=== PATIENT | female | born 2000 | race Caucasian/White ===

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

== ENCOUNTER 2023-02-02 10:37 | Emergency (ER) | payer OTHER, SELFPAY ==
[2023-02-02 10:44] VITALS: BP 108/74; PULSE 90; RESP 16; TEMP 36.6; O2SAT 100
--- NOTE | 2023-02-02 11:03 | ED.SKABFB ---
HPI - Skin/Abscess/Foreign Bdy General Chief complaint: Skin/Abscess/Foreign Body Stated complaint: SWOLLEN AREA TO R BUTTOCK Time Seen by Provider: 02/02/23 11:03 Source: patient, RN notes reviewed and old records reviewed Mode of arrival: ambulatory Limitations: no limitations History of Present Illness HPI narrative: 22 year old female presents to [facility] care with complaints of raised tender tissue to the right of her upper buttock fold for the past 3 days. Patient reports that since yesterday the area has doubled in size and it is tender. Patient reports that area is tender with sitting and also at times is painful when walking.Patient reports she has not noted any drainage from area, is painful to palpation. Patient reports that she has not had previous cyst or abscess on her buttock or near right keshawn cleft. MD complaint: abscess/boil Onset (ago): day(s) (3) Location: buttocks Severity scale (1-10): 5 Treatments prior to arrival: none Related Data Allergies Allergy/AdvReac Type Severity Reaction Status Date / Time No Known Allergies Allergy Verified 02/02/23 11:09 Review of Systems Review of Systems: CONSTITUTIONAL: Denies fever, chills, or sweats. CARDIOVASCULAR: Denies chest pain, palpitations, or edema. RESPIRATORY: Denies cough or dyspnea. GASTROINTESTINAL: Denies abdominal pain, nausea, vomiting SKIN: Reports redness and swelling to right side of upper gluteal fold. Denies purulent drainage, no pustule formation noted , has increased in size since yesterday. MUSCULOSKELETAL: Denies myalgia. NEUROLOGIC: Denies headache, numbness All systems reviewed & are unremarkable except as noted in HPI and below PMFSH Past Medical History Medical History (Updated 02/03/23 @ 00:01 by Sarai Khan) Pyelonephritis Social History Social History (Updated 02/02/23 @ 20:02 by Shruti Corona NP) Smoking status: Never smoker Alcohol intake: unknown Substance use type: does not use Gender identity (if verbalized by the patient): Female Comments At time of signature, agree with nursing past medical, surgical, social and family history. There is no relevant family history pertinent to the presenting complaint Exam Narrative: GENERAL: Well-appearing, well-nourished, and in no acute distress. HEAD: Normocephalic, atraumatic. EYES: PERRLA and EOMI. ENT: Nares clear, no rhinorrhea or epistaxis. Mucous membranes moist. NECK: Supple.no lymphadenopathy CHEST: Clear to auscultation. No respiratory distress. SAO2 100% on room air HEART: Regular rate and rhythm. No murmur heard. Normal peripheral pulses. ABDOMEN: Soft, nontender, nondistended, normal active bowel sounds. EXTREMITIES: Normal range of motion. No edema. SKIN: Warm, dry. Erythema, induration, tenderness, warmth to are of right upper gluteal fold approx 1cm x1cm in size, no fluctuant tissue palpated NEURO: No focal deficits. Alert and oriented x3. Course Course Emergency Course: Patient is aware of diagnosis, understands and agrees to treatment plan. Anticipatory guidance given. Patient agrees to follow-up as directed and is aware of reasons to seek care at the emergency department. Portions of this record may have been created with voice recognition software Level of Care: Express Care Visit Vital Signs Vital signs: Vital Signs Temperature 36.6 C 02/02/23 10:44 Pulse Rate 90 02/02/23 10:44 Respiratory Rate 16 02/02/23 10:44 Blood Pressure 108/74 02/02/23 10:44 Pulse Oximetry 100 02/02/23 10:44 Temperature 36.6 C 02/02/23 10:44 Pulse Rate 90 02/02/23 10:44 Respiratory Rate 16 02/02/23 10:44 Blood Pressure 108/74 02/02/23 10:44 Pulse Oximetry 100 02/02/23 10:44 Reviewed MDM - Skin/Abscess/Foreign Bdy MDM Narrative Medical decision making narrative: Does not appear at this time to be erythema multiforme, bullous, SJS, TEN; no evidence at this time to suggest RMSF, endocarditis or Lyme diseas
== END 2023-02-02 11:21 | disposition home or self-care (01) ==
PROVIDERS: Emergency Provider Registered Nurse
DX: L05.91 Pilonidal cyst without abscess (principal)
CPT/HCPCS: 99213; G0463

== ENCOUNTER 2023-02-06 10:41 | Emergency (ER) | payer OTHER, SELFPAY ==
[2023-02-06 10:46] VITALS: BP 103/65; PULSE 114; RESP 14; TEMP 36.3; O2SAT 99
--- NOTE | 2023-02-06 13:02 | ED.WOUNDLAC ---
HPI - Wound/Laceration General Chief Complaint: Wound/Laceration <DARREN Decker Last Filed: 02/06/23 14:36> Stated Complaint: cyst on buttocks <DARREN Decker Last Filed: 02/06/23 14:36> Time Seen by Provider: 02/06/23 11:29 <DARREN Decker Last Filed: 02/06/23 14:36> Source: patient <DARREN Decker Last Filed: 02/06/23 14:36> Mode of arrival: ambulatory <DARREN Decker Last Filed: 02/06/23 14:36> Limitations: no limitations <DARREN Decker Last Filed: 02/06/23 14:36> History of Present Illness HPI narrative: Patient is a 22-year-old female who presents to the ED with report of painful cyst on her buttocks. Patient reports she first noticed an area of pain to her right buttock, just to the right of her intergluteal cleft last Sunday. Over the weekend, she has developed worsening pain, swelling, redness of the area. She states pain is worse with sitting, having bowel movements. She did take ibuprofen prior to arrival. Denies any abdominal pain, nausea, vomiting, rectal bleeding, fevers. Patient has never had similar symptoms before. <DARREN Decker Last Filed: 02/06/23 14:36> Related Data Allergies/Adverse Reactions: Allergies Allergy/AdvReac Type Severity Reaction Status Date / Time No Known Allergies Allergy Verified 02/02/23 11:09 <DARREN Decker Last Filed: 02/06/23 14:36> Review of Systems Review of Systems: CONSTITUTIONAL: Denies fever, chills, or sweats. CARDIOVASCULAR: Denies chest pain. RESPIRATORY: Denies dyspnea. GASTROINTESTINAL: See HPI. GENITOURINARY: Denies dysuria or hematuria. SKIN: See HPI. MUSCULOSKELETAL: Denies back pain, joint pain, or myalgia. <DARREN Decker Last Filed: 02/06/23 14:36> All systems reviewed & are unremarkable except as noted in HPI and below <Ana Cool PA-C - Last Filed: 02/06/23 14:36> [facility] Past Medical History Medical History: Medical History Pyelonephritis <Aan Cool PA-C - Last Filed: 02/06/23 14:36> Social History Social History: Social History Smoking status: Never smoker Alcohol intake: unknown Substance use type: does not use Gender identity (if verbalized by the patient): Female <Ana Cool PA-C - Last Filed: 02/06/23 14:36> Exam Narrative: GENERAL: Well appearing, obese with BMI of 32.7, non-toxic, in no acute distress. HEAD: Normocephalic, atraumatic. NECK: Supple. No adenopathy, no masses. RESPIRATORY: Airway patent, respirations nonlabored. Clear to auscultation bilaterally, no rales, rhonchi, wheezing. CARDIOVASCULAR: Regular rate and rhythm without murmurs, rubs, or gallops. Radial pulses 2+ and equal bilaterally. ABDOMINAL: Soft, no tenderness throughout abdomen, nondistended, no hepatosplenomegaly. Normoactive BS. RECTAL: Large area of redness, induration, swelling to superior right buttock, just to the right of midline intergluteal cleft, consistent with pilonidal cyst/abscess. Central fluctuance of swelling. Focal tenderness to palpation. No redness, induration, tenderness extending towards perianal region. MUSCULOSKELETAL: Moves all extremities. Strength/ROM intact without gross deformities. SKIN: Warm, dry, normal color. No rashes. NEURO: A&O X3. Speech clear. Cranial nerves II-XII grossly intact. Steady gait. No ataxic movements. PSYCHIATRIC: Mildly anxious. Normal interaction. <Ana Cool PA-C - Last Filed: 02/06/23 14:36> Course CARD CHECKER/PA Physician Supervision I agree with midlevel documentation; exam/history c/w pilonidal abscess. I did perform bedside US confirmed pocket of fluid, I did perform part of I&D procedure, probed with forceps to break loculations to start draining
[2023-02-06] MEDS: SULFAMETHOXAZOLE/TRIMETHOPRIM 800/160 MG DS TABLET 1 TAB PO (13:12)
[2023-02-06] MEDS: LIDOCAINE HCL 1% LOCAL INJ 10 ML VIAL INFILTRATE (13:12)
== END 2023-02-06 13:37 | disposition home or self-care (01) ==
PROVIDERS: Emergency Provider Physician Assistant; PCP Family Medicine
DX: L05.01 Pilonidal cyst with abscess (principal); Z87.440 Personal history of urinary (tract) infections
CPT/HCPCS: 10061; 10080; 87070; 87205; 99283; A9270

== ENCOUNTER 2025-02-03 17:48 | Emergency (ER) | payer OTHER, SELFPAY ==
[2025-02-03] VITALS (7 sets, daily range): BP systolic 106–136; BP diastolic 68–82; PULSE 95–151; RESP 16–20; TEMP 36.6; O2SAT 98–100
--- NOTE | ~2025-02-03 | CT_ITS ---
CT abdomen pelvis w con Ordering provider: Alberto Rose History: 24 years Female with . Lower abdominal pain, syncope . Comparison: None. Technique: CT abdomen and pelvis with IV and without oral contrast. Automated exposure control and it erative reconstruction technique were employed. The dose-length product was 495.26 mGy-cm. Findings: VISUALIZED LOWER CHEST: Normal. UPPER ABDOMINAL ORGANS: Liver: Normal. Gallbladder: Contracted. Spleen: Normal. Stomach/duodenum: Normal. Pancreas: Normal. Adrenals: Normal. Kidneys: Normal. PELVIC ORGANS: The bladder is slightly underfilled with thickened wall. Evaluation for cystitis advis ed. Hyperdense areas seen in the left ovary which may be infection follicle. BOWEL AND MESENTERY: Colon: Mild sigmoid diverticulosis without diverticulitis. Normal appendix. Small Bowel: Normal. No obstruction. Peritoneum/mesentery: No free air. Trace of free fluid is seen in the pelvis.. No mesenteric lymphade nopathy. RETROPERITONEUM: Normal aorta. No retroperitoneal lymphadenopathy. MUSCULOSKELETAL: Superficial soft tissues: The superficial soft tissues are normal. Bones: Normal spine. IMPRESSION: 1. No evidence of appendicitis, diverticulitis or intestinal obstruction. 2. Trace of free fluid in the pelvis. 3. Hyperdense area in the left ovary which may indicate a ruptured ovarian follicle. 4. Slightly thickened wall of the urinary bladder which may indicate cystitis. Clinical correlation advised. Reviewed, dictated and finalized at location A. IMPRESSION: 1. No evidence of appendicitis, diverticulitis or intestinal obstruction. 2. Trace of free fluid in the pelvis. 3. Hyperdense area in the left ovary which may indicate a ruptured ovarian fol licle. 4. Slightly thickened wall of the urinary bladder which may indicate cystitis. Clinical correlation advised.
--- NOTE | ~2025-02-03 | XR_ITS ---
XR chest 1V portable Ordering provider: Alberto Rose MD History: 24 years Female with . dizziness . Comparison: None. FINDINGS: MEDIASTINUM: The cardiac silhouette is not enlarged. LUNGS: No infiltrates, effusions or pneumothorax. OTHER: No free air under the diaphragm. IMPRESSION: No acute cardiopulmonary pathology. Reviewed, dictated and finalized at location A.
--- NOTE | 2025-02-03 18:02 | ECG_ITS ---
Test Date: 2025-02-03 18:17:52 Measurements Intervals [place] Rate: 116 P: 35 AK: 139 QRS: 14 QRSD: 77 T: 7 QT: 293 QTc: 408 Interpretive Statements SINUS TACHYCARDIA NONSPECIFIC T-WAVE ABNORMALITY- ANTEROLAT/INF LEADS BASELINE ARTIFACT- I, II, AVR, AVL, AVF, V1-V6 ABNORMAL ECG No previous ECG available for comparison Electronically Signed On 02-03-2025 20:14:44 CDT by Issa Cross D.O.
[2025-02-03 18:09] LABS: BEDSIDEPREGUCG Negative (Negative)
[2025-02-03 18:10] LABS: Glucose Point of Care 101 mg/dl (65-105)
[2025-02-03] MEDS: SODIUM CHLORIDE 0.9% IV 1,000 ML 999 ML (18:12)
--- NOTE | 2025-02-03 18:16 | ED_ITS ---
HPI - General Adult General Chief complaint: Syncope <Alberto Rose MD - Last Filed: 02/03/25 22:02> Stated complaint: syncope, dizziness <Alberto Rose MD - Last Filed: 02/03/25 22:02> Time Seen by Provider: 02/03/25 17:53 <Alberto Rose MD - Last Filed: 02/03/25 22:02> History of Present Illness HPI narrative: This is a 24-year-old female presenting after an episode of syncope. Patient says that she woke up earlier today and walked out of her room she started to feel lightheaded, her vision got dark sounds seem very far away. She was able to sit down before she briefly lost consciousness. She did not bite her tongue or urinate herself. She then returned to her baseline but when she tried to get up again fainted 1 more time. Patient notes her last several days she has felt fevers. She had temperatures high as 100.6 at home via skin probe today. Patient notes that she has been having pain on urination and suprapubic discomfort. No flank pain. Nausea without vomiting. She has been constipated. Patient denies chest pain difficulty breathing. No lower extremity edema risk factors for DVT/PE. Patient spent all day in the sun over the weekend is is sunburned. <Alberto Rose MD - Last Filed: 02/03/25 22:02> Related Data Allergies/adverse reactions: Allergies Allergy/AdvReac Type Severity Reaction Status Date / Time No Known Allergies Allergy Verified 02/03/25 17:49 <Alberto Rose MD - Last Filed: 02/03/25 22:02> [facility] Past Medical History Medical History: Medical History Pyelonephritis <Alberto Rose MD - Last Filed: 02/03/25 22:02> Social History Social History: Social History Smoking status: Never smoker Alcohol intake: unknown Substance use type: does not use Gender identity (if verbalized by the patient): Female <Alberto Rose MD - Last Filed: 02/03/25 22:02> Exam 2 Narrative: APPEARANCE: No apparent distress. Head: atraumatic. EYES: EOMI, NOSE: Atraumatic NECK: Trachea midline RESPIRATORY: No increased rate of breathing clear to auscultation CARDIOVASCULAR: Tachycardic, orthostatics positive, no peripheral edema ABDOMINAL: Suprapubic discomfort, no CVA tenderness, rest the abdomen is soft without guarding or rebound MUSCULOSKELETAl: No obvious deformities NEURO: Alert. Moving 4/4 extremities SKIN:: Sunburn over the patient's back and shoulders PSYCHIATRIC: Normal affect <Alberto Rose MD - Last Filed: 02/03/25 22:02> Course Vital Signs Vital signs: Vital Signs Temperature 97.8 F 02/03/25 17:56 Pulse Rate 126 H 02/03/25 17:56 Respiratory Rate 18 02/03/25 17:56 Blood Pressure 126/82 02/03/25 17:56 Pulse Oximetry 100 02/03/25 17:56 Oxygen Delivery Room Air 02/03/25 17:56 Temperature 97.8 F 02/03/25 19:45 Pulse Rate 95 02/03/25 20:43 Respiratory Rate 16 02/03/25 20:43 Blood Pressure 120/72 02/03/25 20:43 Pulse Oximetry 98 02/03/25 20:43 Oxygen Delivery Room Air 02/03/25 17:56 <Alberto Rose MD - Last Filed: 02/03/25 22:02> Vital Signs Temperature 97.8 F 02/03/25 17:56 Pulse Rate 126 H 02/03/25 17:56 Respiratory Rate 18 02/03/25 17:56 Blood Pressure 126/82 02/03/25 17:56 Pulse Oximetry 100 02/03/25 17:56 Oxygen Delivery Room Air 02/03/25 17:56 Temperature 97.8 F 02/03/25 19:45 Pulse Rate 95 02/03/25 20:43 Respiratory Rate 16 02/03/25 20:43 Blood Pressure 120/72 02/03/25 20:43 Pulse Oximetry 98 02/03/25 20:43 Oxygen Delivery Room Air 02/03/25 17:56 <Abel Cole MD - Last Filed: 02/03/25 22:09> Medical Decision Making MDM Narrative Medical decision making narrative: -Course: 24-year-old female presenting after a syncopal event. Patient's orthostatic. She has had decreased oral intake and exhaustion from a ruling work schedule. She was given IV fluids with improvement. Patient's workup was significant for a white count 21. The rest her labs within normal limits. Urinalysis did not appear infected. Chest x-ray and EKG were unremarkable. CT abdomen pelvis was added to evaluate for other causes of abdominal pain. Patient has been signed out to the oncoming physician pending completion of her CT scan. <Alberto Rose MD - Last Filed: 02/03/25 22:02> -Course: 24-year-old female presenting after a syncopal event. Patient's orthostatic. She has had decreased oral intake and exhaustion from a ruling work schedule. She was given IV fluids with improvement. Patient's workup was significant for a white count 21. The rest her labs within normal limits. Urinalysis did not appear infected. Chest x-ray and EKG were unremarkable. CT abdomen pelvis was added to evaluate for other causes of abdominal pain. Patient has been signed out to the oncoming physician pending completion of her CT scan. Kelsey: Patient was signed out pending CT abdomen pelvis with IV contrast but it was obtained and blood interpreted by me revealing: IMPRESSION: 1. No evidence of appendicitis, diverticulitis or intestinal obstruction. 2. Trace of free fluid in the pelvis. 3. Hyperdense area in the left ovary which may indicate a ruptured ovarian follicle. 4. Slightly thickened wall of the urinary bladder which may indicate cystitis. Clinical correlation advised. Patient was informed of these findings at bedside. Patient states the feels significantly better. Instructed to follow-up with primary care physician within the next 3-5 days and return to the ED if any new or worsening symptoms develop. She was provided with strict return precautions. Discharged home in <Abel Cole MD - Last Filed: 02/03/25 22:09> Vital Signs Vital Signs: Vital Signs Temperature 97.8 F 02/03/25 17:56 Pulse Rate 126 H 02/03/25 17:56 Respiratory Rate 18 02/03/25 17:56 Blood Pressure 126/82 02/03/25 17:56 Pulse Oximetry 100 02/03/25 17:56 Oxygen Delivery Room Air 02/03/25 17:56 Temperature 97.8 F 02/03/25 19:45 Pulse Rate 95 02/03/25 20:43 Respiratory Rate 16 02/03/25 20:43 Blood Pressure 120/72 02/03/25 20:43 Pulse Oximetry 98 02/03/25 20:43 Oxygen Delivery Room Air 02/03/25 17:56 <Alberto Rose MD - Last Filed: 02/03/25 22:02> Vital Signs Temperature 97.8 F 02/03/25 17:56 Pulse Rate 126 H 02/03/25 17:56 Respiratory Rate 18 02/03/25 17:56 Blood Pressure 126/82 02/03/25 17:56 Pulse Oximetry 100 02/03/25 17:56 Oxygen Delivery Room Air 02/03/25 17:56 Temperature 97.8 F 02/03/25 19:45 Pulse Rate 95 02/03/25 20:43 Respiratory Rate 16 02/03/25 20:43 Blood Pressure 120/72 02/03/25 20:43 Pulse Oximetry 98 02/03/25 20:43 Oxygen Delivery Room Air 02/03/25 17:56 <Abel Cole MD - Last Filed: 02/03/25 22:09> Lab Data Result diagrams: 02/03/25 18:08 02/03/25 18:08 <Alberto Rose MD - Last Filed: 02/03/25 22:02> Labs: Lab Results 02/03/25 02/03/25 02/03/25 Range/Units 18:02 18:07 18:08 WBC 21.0 H (4.5-10.0) K/mm3 RBC 4.34 (4.2-5.4) M/mm3 Hgb 13.6 (12.0-15.0) g/dL Hct 40.5 (37.0-47.0) % MCV 93.3 (80-100) fl MCH 31.3 (26-34) pg MCHC 33.6 (32-36) g/dl RDW 13.0 (11.5-14.5) % Plt Count 298 (150-375) k/mm3 MPV 9.3 (7.4-10.4) fl Immature Gran % (Auto) 0.8 H (0-0.5) % Neut % (Auto) 88.7 H (45.5-73.1) % Lymph % (Auto) 5.5 L (18.3-44.2) % [place] % (Auto) 4.8 (2.6-8.5) % Eos % (Auto) 0.0 (0-4.4) % Baso % (Auto) 0.2 (0.2-1.2) % Lymph # (Auto) 1.16 (0.9-3.2) K/mm3 [place] # (Auto) 1.0 H (0.1-0.6) K/mm3 Eos # (Auto) 0.0 (0-0.3) K/mm3 Baso # (Auto) 0.0 (0.0-0.1) K/mm3 Abs Immat Gran (auto) 0.17 H (0.00-0.031) K/mm3 Absolute Neuts (auto) 18.7 H (1.3-6.7) K/mm3 Absolute Nucleated RBC 0.000 (0.0-0.012) K/mm3 Nucleated RBC % 0.0 (0.0-0.2) % Sodium 135 L (137-145) mmol/L Potassium 4.0 (3.4-5.0) mmol/L Chloride 101 (98-107) mmol/L Carbon Dioxide 24 (22-30) mmol/L Anion Gap 10 (4-12) mmol/L BUN 10 (7-17) mg/dL Creatinine 0.67 L (0.7-1.0) mg/dL Estim Creat Clear Calc 109 ml/min Estimated GFR > 60 (59 - ) Glucose 102 (65-110) mg/dL POC Capillary Glucose 101 (65-105) mg/dl Calcium 9.6 (8.4-10.2) mg/dL Total Bilirubin 0.8 (0.2-1.3) mg/dL AST 28 (14-36) U/L ALT 17 (6-35) U/L Alkaline Phosphatase 60 (38-126) U/L Total Protein 8.4 H (6.3-8.2) g/dL Albumin 4.8 (3.5-5.1) g/dL Urine Color Yellow (Yellow) Urine Appearance Clear (Clear) Urine pH 8.0 (5.0-9.0) Ur Specific [place] 1.017 (1.001-1.035) Urine Protein Negative (Negative) mg/dL Urine Glucose (UA) Negative (Negative) mg/dL Urine Ketones 2+ H (Negative) mg/dL Ur Blood (Man) Negative (Negative) Urine Nitrate Negative (Negative) Urine Bilirubin Negative (Negative) Urine Urobilinogen 1.0 (<2.0) mg/dL Leukocyte Esterase Rfl Negative (Negative) JOSE LUIS/UL POC Urine HCG, Qual Negative (Negative) Influenza A (RT-PCR) (Negative) Influenza B (RT-PCR) (Negative) RSV (RT-PCR) (Negative) SARS-CoV-2 RNA (RT-PCR) (Negative) 02/03/25 Range/Units 19:14 WBC (4.5-10.0) K/mm3 RBC (4.2-5.4) M/mm3 Hgb (12.0-15.0) g/dL Hct (37.0-47.0) % MCV (80-100) fl MCH (26-34) pg MCHC (32-36) g/dl RDW (11.5-14.5) % Plt Count (150-375) k/mm3 MPV (7.4-10.4) fl Immature Gran % (Auto) (0-0.5) % Neut % (Auto) (45.5-73.1) % Lymph % (Auto) (18.3-44.2) % [place] % (Auto) (2.6-8.5) % Eos % (Auto) (0-4.4) % Baso % (Auto) (0.2-1.2) % Lymph # (Auto) (0.9-3.2) K/mm3 [place] # (Auto) (0.1-0.6) K/mm3 Eos # (Auto) (0-0.3) K/mm3 Baso # (Auto) (0.0-0.1) K/mm3 Abs Immat Gran (auto) (0.00-0.031) K/mm3 Absolute Neuts (auto) (1.3-6.7) K/mm3 Absolute Nucleated RBC (0.0-0.012) K/mm3 Nucleated RBC % (0.0-0.2) % Sodium (137-145) mmol/L Potassium (3.4-5.0) mmol/L Chloride (98-107) mmol/L Carbon Dioxide (22-30) mmol/L Anion Gap (4-12) mmol/L BUN (7-17) mg/dL Creatinine (0.7-1.0) mg/dL Estim Creat Clear Calc ml/min Estimated GFR (59 - ) Glucose (65-110) mg/dL POC Capillary Glucose (65-105) mg/dl Calcium (8.4-10.2) mg/dL Total Bilirubin (0.2-1.3) mg/dL AST (14-36) U/L ALT (6-35) U/L Alkaline Phosphatase (38-126) U/L Total Protein (6.3-8.2) g/dL Albumin (3.5-5.1) g/dL Urine Color (Yellow) Urine Appearance (Clear) Urine pH (5.0-9.0) Ur Specific [place] (1.001-1.035) Urine Protein (Negative) mg/dL Urine Glucose (UA) (Negative) mg/dL Urine Ketones (Negative) mg/dL Ur Blood (Man) (Negative) Urine Nitrate (Negative) Urine Bilirubin (Negative) Urine Urobilinogen (<2.0) mg/dL Leukocyte Esterase Rfl (Negative) JOSE LUIS/UL POC Urine HCG, Qual (Negative) Influenza A (RT-PCR) Negative (Negative) Influenza B (RT-PCR) Negative (Negative) RSV (RT-PCR) Negative (Negative) SARS-CoV-2 RNA (RT-PCR) Negative (Negative) <Alberto Rose MD - Last Filed: 02/03/25 22:02> Lab Results 02/03/25 02/03/25 02/03/25 Range/Units 18:02 18:07 18:08 WBC 21.0 H (4.5-10.0) K/mm3 RBC 4.34 (4.2-5.4) M/mm3 Hgb 13.6 (12.0-15.0) g/dL Hct 40.5 (37.0-47.0) % MCV 93.3 (80-100) fl MCH 31.3 (26-34) pg MCHC 33.6 (32-36) g/dl RDW 13.0 (11.5-14.5) % Plt Count 298 (150-375) k/mm3 MPV 9.3 (7.4-10.4) fl Immature Gran % (Auto) 0.8 H (0-0.5) % Neut % (Auto) 88.7 H (45.5-73.1) % Lymph % (Auto) 5.5 L (18.3-44.2) % [place] % (Auto) 4.8 (2.6-8.5) % Eos % (Auto) 0.0 (0-4.4) % Baso % (Auto) 0.2 (0.2-1.2) % Lymph # (Auto) 1.16 (0.9-3.2) K/mm3 [place] # (Auto) 1.0 H (0.1-0.6) K/mm3 Eos # (Auto) 0.0 (0-0.3) K/mm3 Baso # (Auto) 0.0 (0.0-0.1) K/mm3 Abs Immat Gran (auto) 0.17 H (0.00-0.031) K/mm3 Absolute Neuts (auto) 18.7 H (1.3-6.7) K/mm3 Absolute Nucleated RBC 0.000 (0.0-0.012) K/mm3 Nucleated RBC % 0.0 (0.0-0.2) % Sodium 135 L (137-145) mmol/L Potassium 4.0 (3.4-5.0) mmol/L Chloride 101 (98-107) mmol/L Carbon Dioxide 24 (22-30) mmol/L Anion Gap 10 (4-12) mmol/L BUN 10 (7-17) mg/dL Creatinine 0.67 L (0.7-1.0) mg/dL Estim Creat Clear Calc 109 ml/min Estimated GFR > 60 (59 - ) Glucose 102 (65-110) mg/dL POC Capillary Glucose 101 (65-105) mg/dl Calcium 9.6 (8.4-10.2) mg/dL Total Bilirubin 0.8 (0.2-1.3) mg/dL AST 28 (14-36) U/L ALT 17 (6-35) U/L Alkaline Phosphatase 60 (38-126) U/L Total Protein 8.4 H (6.3-8.2) g/dL Albumin 4.8 (3.5-5.1) g/dL Urine Color Yellow (Yellow) Urine Appearance Clear (Clear) Urine pH 8.0 (5.0-9.0) Ur Specific [place] 1.017 (1.001-1.035) Urine Protein Negative (Negative) mg/dL Urine Glucose (UA) Negative (Negative) mg/dL Urine Ketones 2+ H (Negative) mg/dL Ur Blood (Man) Negative (Negative) Urine Nitrate Negative (Negative) Urine Bilirubin Negative (Negative) Urine Urobilinogen 1.0 (<2.0) mg/dL Leukocyte Esterase Rfl Negative (Negative) JOSE LUIS/UL POC Urine HCG, Qual Negative (Negative) Influenza A (RT-PCR) (Negative) Influenza B (RT-PCR) (Negative) RSV (RT-PCR) (Negative) SARS-CoV-2 RNA (RT-PCR) (Negative) 02/03/25 Range/Units 19:14 WBC (4.5-10.0) K/mm3 RBC (4.2-5.4) M/mm3 Hgb (12.0-15.0) g/dL Hct (37.0-47.0) % MCV (80-100) fl MCH (26-34) pg MCHC (32-36) g/dl RDW (11.5-14.5) % Plt Count (150-375) k/mm3 MPV (7.4-10.4) fl Immature Gran % (Auto) (0-0.5) % Neut % (Auto) (45.5-73.1) % Lymph % (Auto) (18.3-44.2) % [place] % (Auto) (2.6-8.5) % Eos % (Auto) (0-4.4) % Baso % (Auto) (0.2-1.2) % Lymph # (Auto) (0.9-3.2) K/mm3 [place] # (Auto) (0.1-0.6) K/mm3 Eos # (Auto) (0-0.3) K/mm3 Baso # (Auto) (0.0-0.1) K/mm3 Abs Immat Gran (auto) (0.00-0.031) K/mm3 Absolute Neuts (auto) (1.3-6.7) K/mm3 Absolute Nucleated RBC (0.0-0.012) K/mm3 Nucleated RBC % (0.0-0.2) % Sodium (137-145) mmol/L Potassium (3.4-5.0) mmol/L Chloride (98-107) mmol/L Carbon Dioxide (22-30) mmol/L Anion Gap (4-12) mmol/L BUN (7-17) mg/dL Creatinine (0.7-1.0) mg/dL Estim Creat Clear Calc ml/min Estimated GFR (59 - ) Glucose (65-110) mg/dL POC Capillary Glucose (65-105) mg/dl Calcium (8.4-10.2) mg/dL Total Bilirubin (0.2-1.3) mg/dL AST (14-36) U/L ALT (6-35) U/L Alkaline Phosphatase (38-126) U/L Total Protein (6.3-8.2) g/dL Albumin (3.5-5.1) g/dL Urine Color (Yellow) Urine Appearance (Clear) Urine pH (5.0-9.0) Ur Specific [place] (1.001-1.035) Urine Protein (Negative) mg/dL Urine Glucose (UA) (Negative) mg/dL Urine Ketones (Negative) mg/dL Ur Blood (Man) (Negative) Urine Nitrate (Negative) Urine Bilirubin (Negative) Urine Urobilinogen (<2.0) mg/dL Leukocyte Esterase Rfl (Negative) JOSE LUIS/UL POC Urine HCG, Qual (Negative) Influenza A (RT-PCR) Negative (Negative) Influenza B (RT-PCR) Negative (Negative) RSV (RT-PCR) Negative (Negative) SARS-CoV-2 RNA (RT-PCR) Negative (Negative) <Abel Cole MD - Last Filed: 02/03/25 22:09> Discharge Plan Discharge Clinical Impression: Acute dehydration, Leukocytosis <Alberto Rose MD - Last Filed: 02/03/25 22:02> Patient Disposition: Home <Alberto Rose MD - Last Filed: 02/03/25 22:02> Condition: Stable <Alberto Rose MD - Last Filed: 02/03/25 22:02> Instructions: Antibiotic Form, Dehydration (ED), Syncope (ED) <Alberto Rose MD - Last Filed: 02/03/25 22:02> Additional Instructions: He was seen emergency after fainting. This likely a combination exhaustion and dehydration. Please make sure that you are drinking plenty of fluids. Please follow-up with your primary care physician. She develop any new or worsening symptoms please return to the ED for re-evaluation. <Alberto Rose MD - Last Filed: 02/03/25 22:02> Patient Language: French <Alberto Rose MD - Last Filed: 02/03/25 22:02> Prescriptions: No Action amoxicillin-pot clavulanate 875-125 mg tablet 1 tablet PO Q12H Qty: 20 0RF Rx Instructions: take with food sulfamethoxazole-trimethoprim [Bactrim DS] 800-160 mg tablet 1 tablet PO Q12H 7 Days Qty: 14 0RF <Alberto Rose MD - Last Filed: 02/03/25 22:02> Follow-up/Referrals: PHYSICIAN,INSTRUCTOR ADJUNCT PHARMACY TECHNICIAN [Primary Care Provider] - 3 Days <Alberto Rose MD - Last Filed: 02/03/25 22:02> Time of Disposition: 22:07 <Alberto Rose MD - Last Filed: 02/03/25 22:02> 22:07 <Abel Cole MD - Last Filed: 02/03/25 22:09>
[2025-02-03 18:21] LABS: Basophils Percent Auto 0.2 % (0.2-1.2); Hematocrit 40.5 % (37.0-47.0); Hemoglobin 13.6 g/dL (12.0-15.0); Immature Granulocyte Absolute 0.17 K/mm3 (0.00-0.031); Immature Granulocyte Percent A 0.8 % (0-0.5); Lymphocytes Absolute Auto 1.16 K/mm3 (0.9-3.2); Lymphocytes Percent Auto 5.5 % (18.3-44.2); Mean Corpuscular HGB Conc 33.6 g/dl (32-36); Mean Corpuscular Hemoglobin 31.3 pg (26-34); Mean Corpuscular Volume 93.3 fl (80-100); Mean Platelet Volume 9.3 fl (7.4-10.4); Monocytes Percent Auto 4.8 % (2.6-8.5); Neutrophils Absolute Auto 18.7 K/mm3 (1.3-6.7); Neutrophils Percent Auto 88.7 % (45.5-73.1); Platelet Count Result 298 k/mm3 (150-375); Red Blood Count 4.34 M/mm3 (4.2-5.4)
[2025-02-03 18:21] LABS: Add Urine Microscopic? NO; Appearance Urine Clear (Clear); Bilirubin Urine Negative (Negative); Blood Urine Negative (Negative); Color Urine Yellow (Yellow); Glucose Urine UA Negative (Negative); Ketones Urine 2+ mg/dL (Negative); Leukocyte Esterase Ur Negative LEU/UL (Negative); Nitrate Urine Negative (Negative); Protein Urine Negative (Negative); Specific Grav Ur 1.017 (1.001-1.035)
[2025-02-03 18:29] LABS: Alanine Aminotransferase 17 U/L (6-35); Albumin Level 4.8 g/dL (3.5-5.1); Alkaline Phosphatase 60 U/L (38-126); Anion Gap 10 mmol/L (4-12); Aspartate Amino Transferase 28 U/L (14-36); Bilirubin,Total 0.8 mg/dL (0.2-1.3); Blood Urea Nitrogen 10 mg/dL (7-17); Calcium 9.6 mg/dL (8.4-10.2); Carbon Dioxide 24 mmol/L (22-30); Chloride 101 mmol/L (98-107); Estimated CRCL calculation 109 ml/min; Estimated Glomerular Filt Rate > 60; Glucose 102 mg/dL (65-110); Sodium 135 mmol/L (137-145); Total Protein 8.4 g/dL (6.3-8.2)
[2025-02-03] MEDS: SODIUM CHLORIDE 0.9% IV 1,000 ML 999 ML IV CONT (19:06)
[2025-02-03 19:59] LABS: Influenza A QL RT-PCR Negative (Negative); Influenza B QL RT-PCR Negative (Negative); RSV RNA, RT-PCR Negative (Negative); SARS-CoV-2 RNA PCR Negative (Negative)
--- NOTE | 2025-02-03 20:44 | PC.NURSE ---
Pt. able to ambulate to bathroom independently w/out dizziness. Pt. states I feel a lot better.
== END 2025-02-03 22:15 | disposition home or self-care (01) ==
PROVIDERS: Emergency Medicine; Emergency Provider Emergency Medicine
DX: E86.0 Dehydration (principal); D72.829 Elevated white blood cell count, unspecified; Z20.822 Contact with and (suspected) exposure to COVID-19
CPT/HCPCS: 36415; 71045; 74177; 80053; 81003; 81025; 82948; 85025; 87637; 93005; 96360; 99284; J7030; Q9967